=== PATIENT | female | born 1975 | race Caucasian/White ===

== ENCOUNTER → 2022-05-13 | Outpatient (CLI) | payer OTHER ==
--- NOTE | 2022-05-13 16:00 | P.SLEEP ---
History of Present Illness H&P Date: 05/13/22 46-year-old morbidly obese female patient with a previous history of obstructive sleep apnea, coming in to establish diagnosis and treatment again with me here at the sleep [facility]. The patient was diagnosed having obstructive sleep apnea many years back, probably prior to 2009. At that time, the patient was given a BiPAP. She has the BiPAP for many years and ultimately the machine broke and the patient did not have any medical insurance and she's been on no treatment. Currently, she is working in the company and she is quite symptomatic somnolent and sleepy and this is affecting her functionality. For that reason, the patient is coming back to be reevaluated. She has no other lost about 40 pounds since original diagnosis. She has hypertension and hyperlipidemia and diabetes mellitus. She has loud snoring, witnessed apneas. She goes to bed around 9 PM wakes at 5 AM in the morning. Despite that, she is excessively tired and sleepy. She drinks a few cups of coffee in the morning pH is not an alcohol drinker. No sleep apnea emesis. No hallucinations. No cataplexy. No restl essness in lower extremities. No nightmares. No anxiety. No panic attacks. Bayside score is at 9. No head trauma. No meningitis. No grinding of the teeth. No history of any motor vehicle accident because of feeling drowsy or sleepy. Review of Systems Constitutional: Reports daytime sleepiness, Reports fatigue, Reports weight loss Eyes: denies as per HPI, denies blurred vision, denies bulging eye, denies decreased vision, denies diplopia, denies discharge, denies dry eye, denies irritation, denies itching, denies pain, denies photophobia, denies loss of peripheral vision, denies loss of vision, denies tunnel vision/blind spots Ears: deny: decreased hearing, ear discharge, earache, tinnitus Ears, nose, mouth and throat: Reports as per HPI Breasts: absent: as per HPI, change in shape, gynecomastia, masses, nipple discharge, pain, skin changes, swelling Cardiovascular: Reports as per HPI Respiratory: Reports as per HPI, Reports sleep apnea, Reports snoring Gastrointestinal: Reports as per HPI Genitourinary: Reports as per HPI Menstruation: Reports as per HPI Musculoskeletal: Reports as per HPI Musculoskeletal: absent: ankle pain, ankle stiffness, ankle swelling Integumentary: Reports as per HPI Neurological: Reports as per HPI Psychiatric: Reports as per HPI Endocrine: Reports as per HPI, Reports fatigue Hematologic/Lymphatic: Reports as per HPI Allergic/Immunologic: Reports as per HPI Past Medical History Additional Past Medical History / Comment(s): Obesity, second sleep apnea, hypertension, hyperlipidemia, diabetes mellitus Past Surgical History: Hysterectomy Past Psychological History: No Psychological Hx Reported Smoking Status: Never smoker Past Alcohol Use History: None Reported Past Drug Use History: None Reported Medications and Allergies Home Medications and Allergies Comment(s): Lipitor 40 mg by mouth daily, Giardia 25 mg by mouth daily, lisinopril 20 mg by mouth daily, metformin 1000 mg twice a day Physical Exam BP is 171/74, pulse is 97, respirations 16, temperature is 97.5, weight is 295, the neck size is 17.5, body mass index is 51, Bayside score is at 9 Gen. appearance the patient is morbidly obese, comfortable likely distress Head exam was generally normal. There was no scleral icterus or corneal arcus. Mucous membranes were moist. Neck was supple and without jugular venous distension, thyromegaly, or carotid bruits. Carotids were easily palpable bilaterally. There was no adenopathy. The patient has significant crowding of posterior oropharynx and a Mallampati class IV Lungs are clear to auscultation and percussion. Cardiac exam reveals the PMI to be normally sized and situated. Rhythm is regular. First and second heart sounds normal. No murmurs, rubs or gallops. Abdominal exam reveals normal bowel sounds, no masses, no organomegaly and no aortic enlargement. Extremities are nonedematous and both femoral and pedal pulses are normal. Examination of the skin revealed no evidence of significant rashes, suspicious appearing nevi or other concerning lesions. Neurologically, the patient is awake and alert and the patient does not have any focal neurological deficit. Cranial nerves are essentially intact. Assessment and Plan Plan: Symptomatic obstructive sleep apnea, the patient is coming in for a reevaluation. The patient was diagnosed and treated many years back and currently she is off treatment and she is quite somnolent and sleepy and the patient is symptomatic and this is affecting her functionality. She has been treated with BiPAP in the past Loud snoring Chronic hypersomnia Diabetes mellitus Hypertension Hyperlipidemia Obesity with a body mass index of 51.5 Plan The patient is in need for another sleep study to establish diagnosis of sleep apnea and proceed with treatment accordingly. Encourage further weight loss Maintaining his sleep hygiene measures Avoid driving special and feeling drowsy or sleepy Optimize and treat comorbidities We'll see the patient in the office after the sleep study will be completed resuscitated response. Sleep Note - Sleep Note Sleep Note: Temperature: Pulse Rate: Respiratory Rate: Blood Pressure: SpO2: Height: Weight: BMI: Neck Circumference:
== END ==
LOC: SLEEP 15:17
PROVIDERS: ATTEND Internal Medicine Critical Care Medicine
DX: G47.33 Obstructive sleep apnea (adult) (pediatric) (principal); Z99.89 Dependence on other enabling machines and devices; E11.9 Type 2 diabetes mellitus without complications; I10 Essential (primary) hypertension; E78.5 Hyperlipidemia, unspecified; E66.01 Morbid (severe) obesity due to excess calories; Z68.43 Body mass index [BMI] 50.0-59.9, adult; Z79.84 Long term (current) use of oral hypoglycemic drugs; Z79.899 Other long term (current) drug therapy
CPT/HCPCS: 99202

== ENCOUNTER → 2022-10-28 | Outpatient (CLI) | payer OTHER ==
--- NOTE | 2022-10-28 15:48 | P.PN ---
Progress Note - Text Progress Note Date: 10/28/22 This is a 47-year-old female patient diagnosed having severe obstructive sleep apnea with an AHI 108. The patient is coming in today for a compliancy check. The patient is using a VPAP auto machine which is set at a minimum pressure of 10 and a maximum pressure of 16 with a pressure support of 4. She is also using a Eson 2 nasal mask. The patient is doing extremely well. She has seen significant improvement in her sleep quality in general. No major hypersomnia or sleepiness during the day. No headaches. No heartburn. No shortness of breath or chest pain. Her weight remains unchanged. However, she is very compliant and she is seeing tremendous benefit from her VPAP auto and the patient is committed to long-term therapy. Based on the compliance data that has been collected between 09/20/2022 and 10/19/2022, the patient has been averaging around 9 hours and 26 minutes of CPAP use per night and her usage of the machine for more than 4 hours is in order of 100%. The patient's has an AHI of 2.0 while on treatment. Leak set in order of 12 L/m. She has no specific complaints. She is committed to long-term CPAP therapy use. No other significant events otherwise for now. Her machine is functional. Her current BP is 147/84 with a pulse of 99 and a respiration of 18 and a weight is 296 pounds. [place] score is at 2. Saturations 97% on room air oxygen. The patient appeared well nourished and normally developed. Vital signs as documented. Head exam is unremarkable. No scleral icterus or corneal arcus noted. Neck is without jugular venous distension, thyromegaly, or carotid bruits. Carotid upstrokes are brisk bilaterally. Mallampati class IV with significant crowding of posterior pharynx. Lungs are clear to auscultation and percussion. Cardiac exam reveals the PMI to be normally sized and situated. Rhythm is regular. First and second heart sounds normal. No murmurs, rubs or gallops. Abdominal exam reveals normal bowel sounds, no masses, no organomegaly and no aortic enlargement. Extremities are nonedematous and both femoral and ped al pulses are normal.Examination of the skin revealed no evidence of significant rashes, suspicious appearing nevi or other concerning lesions.Neurologically, the patient is awake and alert and the patient does not have any focal neurological deficit. Cranial nerves are essentially intact. Assessment Severe symptomatic REGINO with an AHI 108. The patient is being treated successfully with a VPAP auto, pressures are noted above. The patient demonstrated excellent compliancy and clinical response Excessive hypersomnia, improved and the [place] score is down to 2 Morbid obesity with a BMI of 51 Diabetes mellitus Hypertension Hyperlipidemia Plan Continue VPAP treatment and the same level of pressures. The patient has a EPAP minimum of 10 and a maximum of 16 with a pressure support of 4 Continue using the Eson 2 nasal mask and I also offered her airfit nasal mask N20 Encourage weight loss Maintain good sleep hygiene measures Compliancy was checked No need for any pressure adjustment Continue treatment and see her back in the year's time and follow-up.
== END ==
LOC: SLEEP 15:01
PROVIDERS: ATTEND Internal Medicine Critical Care Medicine
DX: G47.33 Obstructive sleep apnea (adult) (pediatric) (principal); E11.9 Type 2 diabetes mellitus without complications; E66.01 Morbid (severe) obesity due to excess calories; E78.5 Hyperlipidemia, unspecified; I10 Essential (primary) hypertension; Z68.43 Body mass index [BMI] 50.0-59.9, adult; Z99.89 Dependence on other enabling machines and devices
CPT/HCPCS: 99212

== ENCOUNTER → 2023-01-13 | Outpatient (CLI) | payer OTHER ==
--- NOTE | 2023-01-13 16:40 | P.PN ---
Progress Note - Text Progress Note Date: 01/13/23 On today's evaluation of 01/13/2023, the patient is coming in for another compliancy check. This is a short-term follow-up. Has been is change in the patient's insurance and another compliancy check was requested. The patient was diagnosed having severe REGINO with an AHI 108 and the patient was given a VPAP auto. Currently the patient is in a VPAP mode with an EPAP minimum of 10, maximum pressure of 60 with a pressure support of 4. Treatment has remained extremity successful. Her weight is essentially unchanged. She is seeing full benefit of the treatment and his sleep quality is improved considerably and the patient is waking up refreshed and alert during the day. She has absolutely no complaints. She is using the nose mask, ESON 2 and she is getting her supplies regularly through [employer]. I checked the compliance data and based on that radiated has been collected between and 12/12/2022 , The patient has utilized the machine every night. Overall compliancy did 100%. Compliancy for more than 4 hours usages around 97%. She is averaging around 9 hours and 58 minutes of BiPAP use per night. Her AHI is down to 2.5. Leaks out in the order of 16 L/m. No cardiovascular complications and the patient is committed to long-term BiPAP therapy BP is 158/84, pulse is 100, respirations 24, Biddle score is at 4, saturations 96% on room air and the patient's weight is 299 The patient appeared well nourished and normally developed. Vital signs as documented. Head exam is unremarkable. No scleral icterus or corneal arcus noted. Neck is without jugular venous distension, thyromegaly, or carotid bruits. Carotid upstrokes are brisk bilaterally. Mallampati class IV with significant crowding of posterior pharynx. Lungs are clear to auscultation and percussion. Cardiac exam reveals the PMI to be normally sized and situated. Rhythm is regular. First and second heart sounds normal. No murmurs, rubs or gallops. Abdominal exam reveals normal bowel sounds, no masses, no organomegaly and no aortic enlargement. Extremities are nonedematous and both femoral and pedal pulses are normal.Examination of the skin revealed no evidence of significant rashes, suspicious appearing nevi or other concerning lesions.Neurologically, the patient is awake and alert and the patient does not have any focal neurological deficit. Cranial nerves are essentially intact. Assessment Severe symptomatic REGINO with an AHI 108. The patient is being treated successfully with a VPAP auto, pressures are noted above. The patient demonstrated excellent compliancy and clinical response Excessive hypersomnia, improved and the Biddle score is down to 2 Morbid obesity with a BMI of 51 Diabetes mellitus Hypertension Hyperlipidemia Plan Continue VPAP treatment and the same level of pressures. The patient has a EPAP minimum of 10 and a maximum of 16 with a pressure support of 4 Continue using the Eson 2 nasal mask and I also offered her airfit nasal mask N20 Encourage weight loss Maintain good sleep hygiene measures Compliancy was checked, The patient needs shows tenderness or compliancy and her BiPAP machine should be covered under her new insurance coverage No need for any pressure adjustment, We'll keep the same settings Continue treatment and see her back in the year's time and follow-up.
== END ==
LOC: SLEEP 15:13
PROVIDERS: ATTEND Internal Medicine Critical Care Medicine
DX: G47.33 Obstructive sleep apnea (adult) (pediatric) (principal); Z99.89 Dependence on other enabling machines and devices; E11.9 Type 2 diabetes mellitus without complications; E66.01 Morbid (severe) obesity due to excess calories; E78.5 Hyperlipidemia, unspecified; I10 Essential (primary) hypertension; Z68.43 Body mass index [BMI] 50.0-59.9, adult; Z90.89 Acquired absence of other organs; Z98.890 Other specified postprocedural states
CPT/HCPCS: 99212